=== PATIENT | female | born 1965 | race Two or more races ===

== ENCOUNTER 2023-05-20 09:44 | Emergency (ER) | payer MEDICAID ==
[~2023-05-20] VITALS: Ht 157.5 cm; Wt 84.8 kg
[2023-05-20 09:55] VITALS: BP 139/68; PULSE 68; RESP 18; TEMP 98; O2SAT 97
[2023-05-20 11:47] LABS: Hematocrit 28.3 % (36.0-46.0); Hemoglobin 9.2 g/dL (12.2-16.2); Mean Corpuscular Hemoglobin 30.5 pg (28.0-32.0); Mean Corpuscular Hgb Conc. 32.6 g/dL (32.0-36.0); Mean Corpuscular Volume 93.4 fL (80.0-100.0); Red Blood Cells 3.02 10^6/uL (4.0-5.20); White Blood Cell 3.7 10^3/uL (4.4-10.8)
[2023-05-20 12:05] LABS: Basophils % (manual) 0 (0.0-2.0); Blast Cells 0; Metamyelocytes % 0; Myelocytes % 0; Promyelocytes % 0; Reactive Lymphocytes 0; Red Cell Distribution Width 21.3 % (11.8-14.3)
[2023-05-20 12:07] LABS: Alanine Aminotransferase 28 U/L (7-40); Albumin 4.3 g/dL (3.2-4.8); Alkaline Phosphatase 70 U/L (46-116); Anion Gap 6.8 (5-15); Aspartate Aminotransferase 58 U/L (13-40); BUN/Creatinine Ratio 9.6 (10.0-20.0); Bilirubin, Total 0.5 mg/dL (0.2-1.0); Blood Urea Nitrogen 12 mg/dL (9-23); Calcium 9.7 mg/dL (8.5-10.1); Carbon Dioxide 25.2 mmol/L (20-30); Chloride 107 mmol/L (98-107); Glucose 117 mg/dL (74-106); Potassium 3.5 mmol/L (3.5-5.1); Sodium 139 mmol/L (136-145); Total Protein 7.9 g/dL (5.7-8.2)
[2023-05-20 12:19] LABS: INR 1.01 (0.9-1.15); Partial Thromboplastin Time 28.8 SEC (24.5-34.5); Prothrombin Time 10.6 sec (9.3-11.8)
[2023-05-20 13:00] LABS: Band Neutrophils % (manual) 1; Eosinophils % (manual) 2 (0-7); Lymphocytes % (manual) 14 (10.0-50.0); Monocytes % (manual) 10 (0-12)
[2023-05-20 13:01] LABS: Platelet Estimate Adequate
[2023-05-20] MEDS ORDERED: FER325T PO (13:09)
== END 2023-05-20 14:49 | disposition home or self-care (01) ==
LOC: ER 09:44
DX: R60.9 Edema, unspecified (principal); D64.9 Anemia, unspecified
CPT/HCPCS: 36415; 80053; 83880; 85007; 85027; 85610; 85730; 93970

== ENCOUNTER 2023-06-28 00:29 | Inpatient (IN) | payer MEDICAID ==
[~2023-06-28] VITALS: Ht 157.5 cm; Wt 92.0 kg
[~2023-06-28 00:29] MED LIST: FER325T PO
[2023-06-28 03:12] LABS: Basophils # (auto) 0 10 ^3/uL (0-0.2); Basophils % (auto) 0.6 % (0.0-2.0); Eosinophils # (auto) 0 10 ^3/uL (0-0.8); Eosinophils % (auto) 0.2 % (0.0-7.0); Hematocrit 28.7 % (36.0-46.0); Hemoglobin 9.7 g/dL (12.2-16.2); Lymphocytes # (auto) 0.5 10 ^3/uL (0.4-5.4); Lymphocytes % (auto) 6.6 % (10.0-50.0); Mean Corpuscular Hemoglobin 30.3 pg (28.0-32.0); Mean Corpuscular Hgb Conc. 33.6 g/dL (32.0-36.0); Mean Corpuscular Volume 90.2 fL (80.0-100.0); Monocytes # (auto) 0.5 10 ^3/uL (0-1.3); Monocytes % (auto) 6.6 % (0.0-12.0); Neutrophils # (auto) 6.5 10 ^3/uL (1.6-8.6); Nucleated Red Blood Cells % 0.1 %; Red Blood Cells 3.18 10^6/uL (4.0-5.20); Red Cell Distribution Width 21.5 % (11.8-14.3); White Blood Cell 7.6 10^3/uL (4.4-10.8)
[2023-06-28 03:23] LABS: Alanine Aminotransferase 10 U/L (7-40); Albumin 4.2 g/dL (3.2-4.8); Alkaline Phosphatase 95 U/L (46-116); Anion Gap 10 (5-15); Aspartate Aminotransferase 34 U/L (13-40); BUN/Creatinine Ratio 9.7 (10.0-20.0); Bilirubin, Total 0.9 mg/dL (0.2-1.0); Blood Urea Nitrogen 14 mg/dL (9-23); Calcium 9.8 mg/dL (8.7-10.4); Carbon Dioxide 24 mmol/L (20-30); Chloride 102 mmol/L (98-107); Glucose 86 mg/dL (74-106); Potassium 4.2 mmol/L (3.5-5.1); Sodium 136 mmol/L (136-145); Total Protein 7.7 g/dL (5.7-8.2)
[2023-06-28 03:54] LABS: Urine Bacteria NONE SEEN /hpf (None Seen); Urine Blood 3+ /uL (Negative); Urine Clarity HAZY (Clear); Urine Color Colorless (Yellow); Urine Mucus FEW (None Seen); Urine Protein, UAD 3+ (Negative); Urine Specific Gravity 1.008 (1.001-1.035); Urine Urobilinogen Normal (Negative); Urine WBC 27 /hpf (0 - 5)
[2023-06-28] MEDS ORDERED: ONDANSETRON HCL 4 MG/2 ML VIAL IV ONE (04:45)
[2023-06-28] MEDS ORDERED: cefTRIAXone 1GM/50ML D5W 50 ML IV ONE (04:45)
[2023-06-28] MEDS ORDERED: MORPHINE SULFATE 4 MG/ML SYR/VIAL IV ONE (04:45)
[2023-06-28 05:03] LABS: INR 1.05 (0.9-1.15)
[2023-06-28] MEDS ORDERED: MORPHINE SULFATE INJ 2 MG/ml SYRG IV PRN (05:30)
[2023-06-28] MEDS ORDERED: ACETAMINOPHEN 325 MG TAB PO PRN (05:30)
[2023-06-28] MEDS ORDERED: DOCUSATE SOD 100 MG CAP PO PRN (05:30)
[2023-06-28] MEDS ORDERED: NITROGLYCERIN 0.4 MG SL TAB SL PRN (05:30)
[2023-06-28 07:08] LABS: Basophils # (auto) 0 10 ^3/uL (0-0.2); Basophils % (auto) 0.5 % (0.0-2.0); Eosinophils # (auto) 0 10 ^3/uL (0-0.8); Eosinophils % (auto) 0.1 % (0.0-7.0); Hematocrit 31.7 % (36.0-46.0); Hemoglobin 10.3 g/dL (12.2-16.2); Lymphocytes # (auto) 0.5 10 ^3/uL (0.4-5.4); Mean Corpuscular Hemoglobin 29.9 pg (28.0-32.0); Mean Corpuscular Hgb Conc. 32.6 g/dL (32.0-36.0); Mean Corpuscular Volume 91.6 fL (80.0-100.0); Monocytes # (auto) 0.5 10 ^3/uL (0-1.3); Monocytes % (auto) 5.8 % (0.0-12.0); Neutrophils # (auto) 7.1 10 ^3/uL (1.6-8.6); Neutrophils % (auto) 87.6 % (37.0-80.0); Nucleated Red Blood Cells % 0.2 %; Red Blood Cells 3.46 10^6/uL (4.0-5.20); White Blood Cell 8.1 10^3/uL (4.4-10.8)
[2023-06-28 07:16] LABS: Albumin 4.3 g/dL (3.2-4.8); Alkaline Phosphatase 97 U/L (46-116); Anion Gap 12 (5-15); Aspartate Aminotransferase 34 U/L (13-40); BUN/Creatinine Ratio 9.1 (10.0-20.0); Blood Urea Nitrogen 15 mg/dL (9-23); Calcium 9.8 mg/dL (8.7-10.4); Carbon Dioxide 22 mmol/L (20-30); Chloride 101 mmol/L (98-107); Glucose 85 mg/dL (74-106); Sodium 135 mmol/L (136-145)
[2023-06-28 07:17] LABS: Bilirubin, Total 0.9 mg/dL (0.2-1.0); Total Protein 7.8 g/dL (5.7-8.2)
[2023-06-28 07:27] LABS: Alanine Aminotransferase 9 U/L (7-40)
[2023-06-28 08:21] VITALS: PULSE 67; RESP 17; O2SAT 98
[2023-06-28] MEDS: SODIUM CHLOR 0.9% PF (SALINE LOCK) 10ML VIAL/SYR IV SCH ×2 (08:26→13:48)
[2023-06-28] MEDS: ONDANSETRON HCL 4 MG/2 ML VIAL IV PRN (13:47)
[2023-06-28] MEDS: HYDROcodone-ACET 5/325MG TAB PO PRN (16:59)
[2023-06-28 22:56] VITALS: PULSE 60; RESP 18; O2SAT 96
[2023-06-28 23:00] VITALS: BP 148/89; PULSE 60; RESP 18; TEMP 98.3; O2SAT 95
[2023-06-28] MEDS ORDERED: NIFE1TAB31 PO (23:12)
[2023-06-28] MEDS ORDERED: GABA-339 PO (23:12)
[2023-06-28] MEDS ORDERED: HYDR-4798 PO (23:13)
[2023-06-29] MEDS: HYDROcodone-ACET 5/325MG TAB PO PRN ×4 (04:22→21:11)
[2023-06-29] MEDS: SODIUM CHLOR 0.9% PF (SALINE LOCK) 10ML VIAL/SYR IV SCH ×4 (04:23→21:12)
[2023-06-29 05:00] VITALS: BP 161/85; PULSE 58; RESP 17; TEMP 97.7; O2SAT 97
[2023-06-29 05:44] LABS: Albumin 3.8 g/dL (3.2-4.8); Alkaline Phosphatase 83 U/L (46-116); Anion Gap 10 (5-15); Aspartate Aminotransferase 33 U/L (13-40); BUN/Creatinine Ratio 8.3 (10.0-20.0); Bilirubin, Total 0.6 mg/dL (0.2-1.0); Calcium 8.9 mg/dL (8.7-10.4); Carbon Dioxide 22 mmol/L (20-30); Chloride 102 mmol/L (98-107); Glucose 74 mg/dL (74-106); Potassium 4.3 mmol/L (3.5-5.1); Sodium 134 mmol/L (136-145); Total Protein 6.7 g/dL (5.7-8.2)
[2023-06-29 05:58] LABS: Alanine Aminotransferase < 9 U/L (7-40); Blood Urea Nitrogen 26 mg/dL (9-23)
[2023-06-29 07:32] LABS: Basophils # (auto) 0.1 10 ^3/uL (0-0.2); Eosinophils # (auto) 0 10 ^3/uL (0-0.8); Eosinophils % (auto) 0.6 % (0.0-7.0); Hematocrit 26.8 % (36.0-46.0); Hemoglobin 8.9 g/dL (12.2-16.2); Lymphocytes # (auto) 0.4 10 ^3/uL (0.4-5.4); Lymphocytes % (auto) 6.5 % (10.0-50.0); Mean Corpuscular Hemoglobin 30.3 pg (28.0-32.0); Mean Corpuscular Hgb Conc. 33.2 g/dL (32.0-36.0); Mean Corpuscular Volume 91.4 fL (80.0-100.0); Monocytes # (auto) 0.5 10 ^3/uL (0-1.3); Monocytes % (auto) 7.8 % (0.0-12.0); Neutrophils # (auto) 5.2 10 ^3/uL (1.6-8.6); Neutrophils % (auto) 84.1 % (37.0-80.0); Nucleated Red Blood Cells % 0.2 %; Red Blood Cells 2.93 10^6/uL (4.0-5.20); White Blood Cell 6.2 10^3/uL (4.4-10.8)
[2023-06-29 07:46] LABS: INR 1.08 (0.9-1.15); Partial Thromboplastin Time 29.1 SEC (24.5-34.5); Prothrombin Time 11.3 sec (9.3-11.8)
[2023-06-29 07:47] LABS: Red Cell Distribution Width 20.8 % (11.8-14.3)
[2023-06-29 08:00] VITALS: PULSE 52; PULSE 60; RESP 16
[2023-06-29 08:44] VITALS: BP 130/55; PULSE 50; RESP 18; TEMP 97.6; O2SAT 97
[2023-06-29] MEDS: cefTRIAXone 1GM/50ML D5W 50 ML IV SCH (08:48)
[2023-06-29 13:00] VITALS: BP 154/73; PULSE 55; RESP 17; TEMP 97.8; O2SAT 96
[2023-06-29] MEDS: ONDANSETRON HCL 4 MG/2 ML VIAL IV PRN ×2 (13:30→21:02)
[2023-06-29 17:00] VITALS: BP 144/95; PULSE 54; RESP 18; TEMP 98.3; O2SAT 100
[2023-06-29 20:00] VITALS: PULSE 53; RESP 17
[2023-06-30] VITALS (7 sets, daily range): BP systolic 124–167; BP diastolic 74–95; PULSE 53–80; RESP 16–18; TEMP 97.6–98.7; O2SAT 93–100
[2023-06-30] MEDS: ONDANSETRON HCL 4 MG/2 ML VIAL IV PRN ×2 (04:31→10:01)
[2023-06-30] MEDS: HYDROcodone-ACET 5/325MG TAB PO PRN ×3 (04:31→22:33)
[2023-06-30 05:23] LABS: Protein, Urine 150.9 mg/dL (0.0-11.9)
[2023-06-30 05:25] LABS: Creatinine, Urine 32.6 mg/dL (30.0-125.0)
[2023-06-30 05:57] LABS: Urine Bacteria NONE SEEN /hpf (None Seen); Urine Blood 2+ /uL (Negative); Urine Clarity Clear (Clear); Urine Color Colorless (Yellow); Urine Hyaline Cast FEW /lpf (0 - 2); Urine Mucus FEW (None Seen); Urine Protein, UAD 2+ (Negative); Urine Specific Gravity 1.008 (1.001-1.035); Urine Urobilinogen Normal (Negative); Urine WBC 11 /hpf (0 - 5); Urine pH 6.5 (5.0-8.0)
[2023-06-30 06:07] LABS: Basophils # (auto) 0 10 ^3/uL (0-0.2); Basophils % (auto) 0.9 % (0.0-2.0); Eosinophils # (auto) 0 10 ^3/uL (0-0.8); Eosinophils % (auto) 0.8 % (0.0-7.0); Hematocrit 24.9 % (36.0-46.0); Hemoglobin 8.2 g/dL (12.2-16.2); Lymphocytes # (auto) 0.4 10 ^3/uL (0.4-5.4); Lymphocytes % (auto) 7.7 % (10.0-50.0); Mean Corpuscular Hemoglobin 30.3 pg (28.0-32.0); Mean Corpuscular Hgb Conc. 32.8 g/dL (32.0-36.0); Mean Corpuscular Volume 92.3 fL (80.0-100.0); Monocytes # (auto) 0.4 10 ^3/uL (0-1.3); Monocytes % (auto) 9.3 % (0.0-12.0); Neutrophils # (auto) 3.9 10 ^3/uL (1.6-8.6); Neutrophils % (auto) 81.3 % (37.0-80.0); Nucleated Red Blood Cells % 0.1 %; White Blood Cell 4.7 10^3/uL (4.4-10.8)
[2023-06-30 06:10] LABS: Red Cell Distribution Width 21.2 % (11.8-14.3)
[2023-06-30 06:18] LABS: Calcium 8.9 mg/dL (8.5-10.1); Chloride 101 mmol/L (98-107); Potassium 4.4 mmol/L (3.5-5.1); Sodium 133 mmol/L (136-145)
[2023-06-30 06:19] LABS: Anion Gap 13 (5-15); Carbon Dioxide 19 mmol/L (20-30)
[2023-06-30 06:24] LABS: BUN/Creatinine Ratio 6.8 (10.0-20.0); Blood Urea Nitrogen 33 mg/dL (9-23); Glucose 65 mg/dL (74-106); INR 1.09 (0.9-1.15); Partial Thromboplastin Time 31.9 SEC (24.5-34.5); Prothrombin Time 11.4 sec (9.3-11.8)
[2023-06-30 06:29] LABS: Albumin 3.8 g/dL (3.2-4.8); Bilirubin, Direct 0.2 mg/dL (<0.3); Bilirubin, Total 0.6 mg/dL (0.2-1.0); Phosphorus 5.8 mg/dL (2.4-5.1); Total Protein 6.9 g/dL (5.7-8.2)
[2023-06-30] MEDS: SODIUM CHLOR 0.9% PF (SALINE LOCK) 10ML VIAL/SYR IV SCH ×3 (06:43→21:06)
[2023-06-30] MEDS: cefTRIAXone 1GM/50ML D5W 50 ML IV SCH (09:00)
[2023-06-30] MEDS: NIFEdipine ER 30 MG TAB PO SCH (09:40)
[2023-06-30] MEDS ORDERED: MIDAZOLAM HCL 2MG/2ML 2ml VIAL (1mg/ml) IV ONE (12:15)
[2023-06-30] MEDS ORDERED: fentaNYL CITRATE 100 MCG/2 ML VL IV ONE (12:15)
[2023-07-01] VITALS (12 sets, daily range): BP systolic 104–164; BP diastolic 57–87; PULSE 56–87; RESP 12–19; TEMP 97.4–98.6; O2SAT 91–100
[2023-07-01] MEDS: SODIUM CHLOR 0.9% PF (SALINE LOCK) 10ML VIAL/SYR IV SCH ×3 (05:36→22:19)
[2023-07-01 07:03] LABS: Chloride 99 mmol/L (98-107); Potassium 4.3 mmol/L (3.5-5.1); Sodium 131 mmol/L (136-145)
[2023-07-01 07:04] LABS: Anion Gap 14 (5-15); Carbon Dioxide 18 mmol/L (20-30)
[2023-07-01 07:05] LABS: Calcium 9.1 mg/dL (8.7-10.4)
[2023-07-01 07:06] LABS: Basophils # (auto) 0 10 ^3/uL (0-0.2); Basophils % (auto) 0.6 % (0.0-2.0); Eosinophils # (auto) 0 10 ^3/uL (0-0.8); Eosinophils % (auto) 0.5 % (0.0-7.0); Hematocrit 30.7 % (36.0-46.0); Lymphocytes # (auto) 0.6 10 ^3/uL (0.4-5.4); Lymphocytes % (auto) 15.6 % (10.0-50.0); Mean Corpuscular Hemoglobin 30.6 pg (28.0-32.0); Mean Corpuscular Hgb Conc. 32.6 g/dL (32.0-36.0); Mean Corpuscular Volume 93.8 fL (80.0-100.0); Monocytes # (auto) 0.3 10 ^3/uL (0-1.3); Monocytes % (auto) 9.8 % (0.0-12.0); Neutrophils # (auto) 2.6 10 ^3/uL (1.6-8.6); Neutrophils % (auto) 73.5 % (37.0-80.0); Nucleated Red Blood Cells % 0.1 %; Red Blood Cells 3.27 10^6/uL (4.0-5.20); Red Cell Distribution Width 21.5 % (11.8-14.3); White Blood Cell 3.5 10^3/uL (4.4-10.8)
[2023-07-01 07:09] LABS: BUN/Creatinine Ratio 3.9 (10.0-20.0); Blood Urea Nitrogen 26 mg/dL (9-23); Glucose 64 mg/dL (74-106)
[2023-07-01] MEDS ORDERED: fentaNYL CITRATE 100 MCG/2 ML VL ONE (07:31)
[2023-07-01] MEDS ORDERED: MIDAZOLAM HCL 2MG/2ML 2ml VIAL (1mg/ml) ONE (07:32)
[2023-07-01] MEDS ORDERED: LIDOCAINE 2%HCL (LOCAL ANESTH.) INJ 20ML MDV ONE (07:32)
[2023-07-01] MEDS ORDERED: IODIXANOL 320MG/ML 100ML BTL IV ONE (07:32)
[2023-07-01] MEDS ORDERED: cefTRIAXone 1GM/50ML D5W 50 ML IV ONE (08:05)
[2023-07-01] MEDS: cefTRIAXone 1GM/50ML D5W 50 ML IV SCH ×2 (09:00→09:59)
[2023-07-01] MEDS: HYDROcodone-ACET 5/325MG TAB PO PRN ×2 (09:58→14:58)
[2023-07-01] MEDS: NIFEdipine ER 30 MG TAB PO SCH (09:58)
[2023-07-01] MEDS ORDERED: FUROSEMIDE 100 MG/10ML VIAL IV ONE (11:00)
[2023-07-01] MEDS: CALCIUM ACETATE 667 MG CAP PO SCH ×2 (13:58→18:46)
[2023-07-01] MEDS: SODIUM BICARBONATE 650 MG TAB PO SCH ×3 (13:59→20:03)
[2023-07-02] VITALS (7 sets, daily range): BP systolic 114–148; BP diastolic 67–81; PULSE 63–69; RESP 17–18; TEMP 97.9–98.6; O2SAT 94–98
[2023-07-02] MEDS: HYDROcodone-ACET 5/325MG TAB PO PRN (05:09)
[2023-07-02] MEDS: SODIUM CHLOR 0.9% PF (SALINE LOCK) 10ML VIAL/SYR IV SCH ×3 (05:10→20:59)
[2023-07-02] MEDS: ONDANSETRON HCL 4 MG/2 ML VIAL IV PRN (05:15)
[2023-07-02] MEDS: SODIUM BICARBONATE 650 MG TAB PO SCH ×3 (05:23→20:59)
[2023-07-02 05:29] LABS: Chloride 99 mmol/L (98-107); Potassium 3.9 mmol/L (3.5-5.1); Sodium 133 mmol/L (136-145)
[2023-07-02 05:30] LABS: Anion Gap 15 (5-15); Calcium 9.6 mg/dL (8.5-10.1); Carbon Dioxide 19 mmol/L (20-30)
[2023-07-02 05:35] LABS: BUN/Creatinine Ratio 5.2 (10.0-20.0); Blood Urea Nitrogen 30 mg/dL (9-23); Glucose 64 mg/dL (74-106)
[2023-07-02] MEDS: CALCIUM ACETATE 667 MG CAP PO SCH ×3 (08:00→18:00)
[2023-07-02] MEDS: NIFEdipine ER 30 MG TAB PO SCH (10:00)
[2023-07-02] MEDS ORDERED: D5W/SOD CHL 0.45% 1,000 ML IV SCH (10:15)
[2023-07-02] MEDS: ACCU-CHEK COMFORT CURVE STRIP VI SCH ×2 (12:00→18:01)
[2023-07-02] MEDS ORDERED: CLINIMIX PER PHARMACY 0 ML IV SCH (15:45)
[2023-07-02] MEDS: D5W/SOD CHL 0.45% 1,000 ML IV SCH (15:45)
[2023-07-02 16:55] LABS: Magnesium 1.8 mg/dL (1.6-2.6)
[2023-07-02 16:56] LABS: Phosphorus 6.8 mg/dL (2.4-5.1)
[2023-07-02] MEDS ORDERED: AMINO ACID INFUSION IN D10W 1,000 ML IV NR (20:00)
[2023-07-03] VITALS (7 sets, daily range): BP systolic 100–135; BP diastolic 57–78; PULSE 57–63; RESP 18–20; TEMP 97.5–99; O2SAT 95–100
[2023-07-03] MEDS ORDERED: DEXTROSE (50%) 50ML SYRG IV SCH
[2023-07-03] MEDS: ACCU-CHEK COMFORT CURVE STRIP VI SCH ×8 (01:09→17:27)
[2023-07-03] MEDS: SODIUM BICARBONATE 650 MG TAB PO SCH ×3 (05:01→20:56)
[2023-07-03] MEDS: InsuLIN REG 1unit/0.01ml Soln (100units/ml) SC SCH ×4 (05:11→17:26)
[2023-07-03] MEDS: SODIUM CHLOR 0.9% PF (SALINE LOCK) 10ML VIAL/SYR IV SCH ×3 (05:12→20:55)
[2023-07-03] MEDS: CALCIUM ACETATE 667 MG CAP PO SCH ×3 (08:00→17:27)
[2023-07-03 08:15] LABS: BUN/Creatinine Ratio 7.8 (10.0-20.0)
[2023-07-03 08:17] LABS: Phosphorus 4.2 mg/dL (2.4-5.1)
[2023-07-03 08:20] LABS: Calcium 8.9 mg/dL (8.5-10.1); Potassium 2.7 mmol/L (3.5-5.1)
[2023-07-03] MEDS: cefTRIAXone 1GM/50ML D5W 50 ML IV SCH ×2 (09:00→12:56)
[2023-07-03 09:33] LABS: Magnesium 1.6 mg/dL (1.6-2.6)
[2023-07-03] MEDS: POTASSIUM CHL 20MEQ/100ML 100 ML IV SCH ×4 (09:38→18:53)
[2023-07-03] MEDS: NIFEdipine ER 30 MG TAB PO SCH (10:00)
[2023-07-03] MEDS: MORPHINE SULFATE INJ 2 MG/ml SYRG IV PRN ×2 (11:32→16:30)
[2023-07-03] MEDS: D5W/SOD CHL 0.45% 1,000 ML IV SCH (16:20)
[2023-07-03] MEDS: AMINO ACID INFUSION IN D10W 1,000 ML IV NR (20:53)
[2023-07-04] VITALS (7 sets, daily range): BP systolic 135–154; BP diastolic 67–82; PULSE 56–76; RESP 16–22; TEMP 97.7–98.6; O2SAT 96–100
[2023-07-04] MEDS: PROMETHAZINE HCL 25 MG/ML 1ML IV PRN ×3 (01:42→23:40)
[2023-07-04] MEDS: SODIUM BICARBONATE 650 MG TAB PO SCH (06:00)
[2023-07-04] MEDS: InsuLIN REG 1unit/0.01ml Soln (100units/ml) SC SCH ×4 (06:00→18:00)
[2023-07-04] MEDS: ACCU-CHEK COMFORT CURVE STRIP VI SCH ×7 (06:00→18:19)
[2023-07-04 06:29] LABS: Basophils # (auto) 0 10 ^3/uL (0-0.2); Lymphocytes # (auto) 0.3 10 ^3/uL (0.4-5.4); Mean Corpuscular Hemoglobin 30.4 pg (28.0-32.0); Monocytes # (auto) 0.4 10 ^3/uL (0-1.3); Neutrophils # (auto) 2.4 10 ^3/uL (1.6-8.6); Nucleated Red Blood Cells % 0.1 %; White Blood Cell 3.2 10^3/uL (4.4-10.8)
[2023-07-04 06:31] LABS: Basophils % (auto) 0.7 % (0.0-2.0); Eosinophils # (auto) 0 10 ^3/uL (0-0.8); Eosinophils % (auto) 1.4 % (0.0-7.0); Hematocrit 21.3 % (36.0-46.0); Lymphocytes % (auto) 9.9 % (10.0-50.0); Mean Corpuscular Hgb Conc. 32.9 g/dL (32.0-36.0); Mean Corpuscular Volume 92.2 fL (80.0-100.0); Monocytes % (auto) 13.3 % (0.0-12.0); Neutrophils % (auto) 74.7 % (37.0-80.0); Red Blood Cells 2.31 10^6/uL (4.0-5.20)
[2023-07-04 06:45] LABS: Albumin 3.8 g/dL (3.2-4.8); Alkaline Phosphatase 69 U/L (46-116); Anion Gap 7 (5-15); Aspartate Aminotransferase 23 U/L (13-40); BUN/Creatinine Ratio 9.8 (10.0-20.0); Bilirubin, Total 0.4 mg/dL (0.2-1.0); Blood Urea Nitrogen 22 mg/dL (9-23); Calcium 8.3 mg/dL (8.7-10.4); Carbon Dioxide 23 mmol/L (20-30); Chloride 101 mmol/L (98-107); Glucose 281 mg/dL (74-106); Magnesium 1.3 mg/dL (1.6-2.6); Phosphorus 1.8 mg/dL (2.4-5.1); Potassium 3.2 mmol/L (3.5-5.1); Sodium 131 mmol/L (136-145); Total Protein 6.7 g/dL (5.7-8.2)
[2023-07-04 06:49] LABS: Alanine Aminotransferase < 9 U/L (7-40)
[2023-07-04 06:50] LABS: Red Cell Distribution Width 21.2 % (11.8-14.3)
[2023-07-04] MEDS: SODIUM CHLOR 0.9% PF (SALINE LOCK) 10ML VIAL/SYR IV SCH ×3 (07:05→22:25)
[2023-07-04] MEDS: MORPHINE SULFATE INJ 2 MG/ml SYRG IV PRN ×4 (07:43→23:51)
[2023-07-04] MEDS: CALCIUM ACETATE 667 MG CAP PO SCH (08:00)
[2023-07-04 08:12] LABS: Platelet Estimate Decreased
[2023-07-04 08:13] LABS: Hemoglobin 8.1 g/dL (12.2-16.2)
[2023-07-04 08:13] LABS: Anisocytosis Slight
[2023-07-04 08:15] LABS: Hematocrit 25.2 % (36.0-46.0); Mean Corpuscular Hgb Conc. 32.2 g/dL (32.0-36.0); Red Blood Cells 2.71 10^6/uL (4.0-5.20); White Blood Cell 3.9 10^3/uL (4.4-10.8)
[2023-07-04 08:23] LABS: Red Cell Distribution Width 21.1 % (11.8-14.3)
[2023-07-04 08:25] LABS: Basophils % (manual) 0 (0.0-2.0); Blast Cells 0; Eosinophils % (manual) 0 (0-7); Metamyelocytes % 0; Myelocytes % 0; Promyelocytes % 0; Reactive Lymphocytes 0
[2023-07-04 08:38] LABS: Band Neutrophils % (manual) 1; Lymphocytes % (manual) 11 (10.0-50.0); Monocytes % (manual) 6 (0-12)
[2023-07-04 08:39] LABS: Anisocytosis Slight; Platelet Estimate Decreased
[2023-07-04] MEDS: cefTRIAXone 1GM/50ML D5W 50 ML IV SCH (09:41)
[2023-07-04] MEDS: NIFEdipine ER 30 MG TAB PO SCH (09:41)
[2023-07-04] MEDS ORDERED: POTASSIUM PHOSPHATE 22 MEQ in SODIUM CHL 0.9% 100 ML IV ONE (11:15)
[2023-07-04] MEDS ORDERED: POTASSIUM CHL 20MEQ/100ML 100 ML IV SCH (11:15)
[2023-07-04] MEDS: MAGNESIUM SULFATE 1GM/100ML 100 ML IV SCH ×2 (12:04→13:05)
[2023-07-04] MEDS: D5W/SOD CHLO 0.9% 1,000 ML IV SCH (12:04)
[2023-07-04] MEDS ORDERED: LABETALOL HCL 5 MG/ML 4ML SYRINGE IV PRN (14:00)
[2023-07-04] MEDS: AMINO ACID INFUSION IN D10W 1,000 ML IV NR (22:25)
[2023-07-05] VITALS (7 sets, daily range): BP systolic 115–154; BP diastolic 64–86; PULSE 60–71; RESP 14–20; TEMP 37; O2SAT 93–100
[2023-07-05] MEDS: ACCU-CHEK COMFORT CURVE STRIP VI SCH ×5 (00:12→20:32)
[2023-07-05 05:57] LABS: Calcium 8.2 mg/dL (8.5-10.1)
[2023-07-05] MEDS: InsuLIN REG 1unit/0.01ml Soln (100units/ml) SC SCH ×5 (06:00→20:31)
[2023-07-05 06:02] LABS: BUN/Creatinine Ratio 11.6 (10.0-20.0)
[2023-07-05 06:03] LABS: Albumin 3.7 g/dL (3.2-4.8)
[2023-07-05 06:04] LABS: Phosphorus 1.5 mg/dL (2.4-5.1)
[2023-07-05] MEDS: SODIUM CHLOR 0.9% PF (SALINE LOCK) 10ML VIAL/SYR IV SCH ×2 (06:53→14:00)
[2023-07-05] MEDS: D5W/SOD CHLO 0.9% 1,000 ML IV SCH ×2 (06:54→13:55)
[2023-07-05 07:00] LABS: Potassium 2.9 mmol/L (3.5-5.1)
[2023-07-05 07:11] LABS: Magnesium 1.4 mg/dL (1.6-2.6)
[2023-07-05] MEDS ORDERED: POTASSIUM CHLORIDE 40 MEQ, LIDOCAINE 1% (LOCAL ANESTH.) 4 ML in SODIUM CHL 0.9% 250 ML IV ONE (08:00)
[2023-07-05] MEDS: cefTRIAXone 1GM/50ML D5W 50 ML IV SCH (08:41)
[2023-07-05] MEDS: MORPHINE SULFATE INJ 2 MG/ml SYRG IV PRN ×3 (08:42→18:08)
[2023-07-05] MEDS ORDERED: POTASSIUM PHOSPHATE 44 MEQ in D5W 5% 250 ML IV ONE (11:15)
[2023-07-05] MEDS: MAGNESIUM SULFATE 1GM/100ML 100 ML IV SCH ×2 (11:30→12:25)
[2023-07-05] MEDS: POTASSIUM CHL 20MEQ/100ML 100 ML IV SCH ×2 (15:31→17:38)
[2023-07-05] MEDS: AMINO ACID INFUSION IN D10W 1,000 ML IV NR (22:12)
[2023-07-06] VITALS (8 sets, daily range): BP systolic 153–175; BP diastolic 70–95; PULSE 54–81; RESP 12–18; TEMP 98.1–99.4; O2SAT 92–99
[2023-07-06] MEDS: MORPHINE SULFATE INJ 2 MG/ml SYRG IV PRN ×4 (00:38→21:06)
[2023-07-06] MEDS: ACCU-CHEK COMFORT CURVE STRIP VI SCH ×3 (05:40→17:30)
[2023-07-06] MEDS: InsuLIN REG 1unit/0.01ml Soln (100units/ml) SC SCH ×3 (05:40→17:30)
[2023-07-06] MEDS: HYDROcodone-ACET 5/325MG TAB PO PRN (06:02)
[2023-07-06] MEDS: SODIUM CHLOR 0.9% PF (SALINE LOCK) 10ML VIAL/SYR IV SCH ×4 (06:04→22:00)
[2023-07-06 09:12] LABS: Potassium 3.5 mmol/L (3.5-5.1)
[2023-07-06 09:14] LABS: Calcium 8.3 mg/dL (8.5-10.1)
[2023-07-06 09:19] LABS: BUN/Creatinine Ratio 12.3 (10.0-20.0)
[2023-07-06 09:21] LABS: Albumin 3.7 g/dL (3.2-4.8); Phosphorus 1.6 mg/dL (2.4-5.1)
[2023-07-06 09:33] LABS: Magnesium 1.4 mg/dL (1.6-2.6)
[2023-07-06] MEDS: cefTRIAXone 1GM/50ML D5W 50 ML IV SCH (09:46)
[2023-07-06] MEDS ORDERED: POTASSIUM PHOSPHATE 44 MEQ in D5W 5% 250 ML IV ONE ×2 (11:00→14:00)
[2023-07-06] MEDS: MAGNESIUM SULFATE 1GM/100ML 100 ML IV SCH ×3 (11:34→14:04)
[2023-07-06 12:48] LABS: Hemoglobin 7.4 g/dL (12.2-16.2); White Blood Cell 4.2 10^3/uL (4.4-10.8)
[2023-07-06 12:50] LABS: Hematocrit 22.4 % (36.0-46.0); Red Blood Cells 2.46 10^6/uL (4.0-5.20)
[2023-07-06 12:51] LABS: Red Cell Distribution Width 21.4 % (11.8-14.3)
[2023-07-06 12:53] LABS: Basophils % (manual) 0 (0.0-2.0); Blast Cells 0; Myelocytes % 0; Promyelocytes % 0; Reactive Lymphocytes 0
[2023-07-06 13:12] LABS: Band Neutrophils % (manual) 6; Lymphocytes % (manual) 9 (10.0-50.0)
[2023-07-06 13:13] LABS: Anisocytosis Moderate; Eosinophils % (manual) 1 (0-7); Metamyelocytes % 1; Monocytes % (manual) 13 (0-12)
[2023-07-06 13:14] LABS: Platelet Estimate Decreased
[2023-07-06] MEDS: AMINO ACID INFUSION IN D10W 1,000 ML IV NR (21:07)
[2023-07-07] MEDS: MORPHINE SULFATE INJ 2 MG/ml SYRG IV PRN ×2 (01:59→06:42)
[2023-07-07 04:56] VITALS: BP 154/95; PULSE 59; RESP 16; TEMP 98.1; O2SAT 97
[2023-07-07 05:37] LABS: Albumin 3.9 g/dL (3.2-4.8); Alkaline Phosphatase 76 U/L (46-116); Anion Gap 10 (5-15); Aspartate Aminotransferase 32 U/L (13-40); BUN/Creatinine Ratio 11.9 (10.0-20.0); Blood Urea Nitrogen 15 mg/dL (9-23); Calcium 8.7 mg/dL (8.7-10.4); Carbon Dioxide 22 mmol/L (20-30); Chloride 102 mmol/L (98-107); Glucose 86 mg/dL (74-106); Magnesium 1.7 mg/dL (1.6-2.6); Phosphorus 2.7 mg/dL (2.4-5.1); Potassium 3.9 mmol/L (3.5-5.1); Sodium 134 mmol/L (136-145)
[2023-07-07 05:38] LABS: Bilirubin, Total 0.4 mg/dL (0.2-1.0); Total Protein 7.1 g/dL (5.7-8.2)
[2023-07-07] MEDS: InsuLIN REG 1unit/0.01ml Soln (100units/ml) SC SCH ×3 (06:00→12:00)
[2023-07-07] MEDS: SODIUM CHLOR 0.9% PF (SALINE LOCK) 10ML VIAL/SYR IV SCH (06:05)
[2023-07-07] MEDS: ACCU-CHEK COMFORT CURVE STRIP VI SCH ×3 (06:05→12:00)
[2023-07-07 06:06] LABS: Alanine Aminotransferase < 9 U/L (7-40)
[2023-07-07 06:31] LABS: Hemoglobin 7.8 g/dL (12.2-16.2); White Blood Cell 4.6 10^3/uL (4.4-10.8)
[2023-07-07 06:34] LABS: Hematocrit 23.2 % (36.0-46.0); Mean Corpuscular Hemoglobin 30.4 pg (28.0-32.0); Mean Corpuscular Hgb Conc. 33.5 g/dL (32.0-36.0); Mean Corpuscular Volume 90.5 fL (80.0-100.0); Red Blood Cells 2.57 10^6/uL (4.0-5.20)
[2023-07-07 07:09] LABS: Red Cell Distribution Width 21.1 % (11.8-14.3)
[2023-07-07 07:11] LABS: Basophils % (manual) 0 (0.0-2.0); Blast Cells 0; Promyelocytes % 0; Reactive Lymphocytes 0
[2023-07-07 08:00] VITALS: PULSE 54
[2023-07-07 08:08] LABS: Band Neutrophils % (manual) 1; Eosinophils % (manual) 2 (0-7); Lymphocytes % (manual) 15 (10.0-50.0); Metamyelocytes % 2; Monocytes % (manual) 2 (0-12); Myelocytes % 5; Platelet Estimate Decreased
[2023-07-07] MEDS ORDERED: hydrALAZINE HCL 20 MG/ML VL IV PRN (08:30)
[2023-07-07 09:15] VITALS: BP 183/94; PULSE 51; RESP 16; TEMP 97; O2SAT 96
[2023-07-07] MEDS: HYDROcodone-ACET 5/325MG TAB PO PRN (10:13)
[2023-07-07] MEDS: cefTRIAXone 1GM/50ML D5W 50 ML IV SCH (10:14)
[2023-07-07 13:00] VITALS: BP 119/77; PULSE 59; RESP 16; TEMP 97.9; O2SAT 98
== END 2023-07-07 15:21 | disposition home or self-care (01) | DRG 466 ==
LOC: ER 00:29 → TELE 05:39 → TELE-WESTW 22:48
PROVIDERS: ADMIT Nurse Practitioner Family; ATTEND Nurse Practitioner Acute Care
PROC: 0T9330Z Drainage of Right Kidney Pelvis with Drainage Device, Percutaneous Approach (ICD-10-PCS; principal; 2023-07-01)
PROC: 0D9670Z Drainage of Stomach with Drainage Device, Via Natural or Artificial Opening (ICD-10-PCS; 2023-07-02)
PROC: 05HB33Z Insertion of Infusion Device into Right Basilic Vein, Percutaneous Approach (ICD-10-PCS; 2023-07-05)
PROC: B54MZZA Ultrasonography of Right Upper Extremity Veins, Guidance (ICD-10-PCS; 2023-07-05)
DX: T83.022A Displacement of nephrostomy catheter, initial encounter (principal); N17.0 Acute kidney failure with tubular necrosis; K56.609 Unspecified intestinal obstruction, unspecified as to partial versus complete obstruction; E87.20 Acidosis, unspecified; R18.8 Other ascites; N13.6 Pyonephrosis; E83.39 Other disorders of phosphorus metabolism; C53.9 Malignant neoplasm of cervix uteri, unspecified; E87.70 Fluid overload, unspecified; E83.42 Hypomagnesemia; E86.9 Volume depletion, unspecified; E66.9 Obesity, unspecified; Y73.2 Prosthetic and other implants, materials and accessory gastroenterology and urology devices associated with adverse incidents; N18.9 Chronic kidney disease, unspecified; I12.9 Hypertensive chronic kidney disease with stage 1 through stage 4 chronic kidney disease, or unspecified chronic kidney disease; Z68.37 Body mass index [BMI] 37.0-37.9, adult; Y92.89 Other specified places as the place of occurrence of the external cause; Z80.6 Family history of leukemia; Z83.3 Family history of diabetes mellitus; Z85.41 Personal history of malignant neoplasm of cervix uteri; Z92.21 Personal history of antineoplastic chemotherapy
CPT/HCPCS: 36415; 50432; 71045; 74018; 74176; 74425; 76000; 76775; 76942; 80048; 80053; 80069; 80076; 81001; 82570; 82962; 83735; 84100; 84156; 84300; 85007; 85025; 85027; 85610; 85730; 86850; 86900; 86901; 87086; 96361; 96374; 96375; 99152; G0378; J0696; J2001; J2250; J2405; J3480; J3490; J7042; J7060; Q9967